=== PATIENT | female | born 1965 | race Caucasian/White ===

== ENCOUNTER 2017-03-18 13:08 | Inpatient (IN) | payer MEDICAID, OTHER ==
--- NOTE | 2017-03-18 13:17 | EDM.PDOCBH ---
ED HPI GENERAL MEDICAL PROBLEM - General Stated Complaint: OVERDOSE Time Seen by Provider: 03/18/17 13:09 Source of Information: Reports: Patient, Family (daughter) History Limitations: Reports: Intoxication - History of Present Illness INITIAL COMMENTS - FREE TEXT/NARRATIVE: 51 y.w.f. was found by her daughter, sitting in the car, the garage, unresponsive, with a big bottle of whisky next to her, 1/2 empty. It is not clear how long the patient has been sitting in her car. Daughter called the EMS. EMS brought the patient to the ed. On arrival, the patien was intxicated with a GCS of 11. Opens her eyes to verbal command (3) inappropriate response ( 3), purposeful movement to painful stimuli (5). Daughter is present. Pt was 4 times in a ETOH program in the past. BP 118/47 RR 16, O2 (7 on RA Temp 36.4 pulse 106 Onset: Today Onset Date: 03/18/17 Onset Time: 10:00 Duration: Hour(s): Location: Reports: Generalized Quality: Reports: Other (intoxicated) Improves with: Reports: Other (not drinking) Context: Reports: Other (pt was found unresponsive in her car, 1/2 empty bottle of whisky next to her) Associated Symptoms: Reports: Other (lethargic) - Related Data Allergies Allergy/AdvReac Type Severity Reaction Status Date / Time No Known Allergies Allergy Verified 03/18/17 13:57 Home Meds: Home Meds Multivitamin [Multivitamins] 1 tab PO DAILY 12/31/15 [History] Past Medical History Respiratory History: Reports: Bronchitis, Recurrent Other Genitourinary History: KIDNEY STONES IN PAST Other OB/BYN History: A&P repair noted from Dr Barrett's last H&P 01/03 Neurological History: Reports: Concussion, Migraines Other Psychiatric History: alcoholism by hx, admitted tonight with elevate ETOH level and fall at home. Has been in treatment twice the first time fairly extensive, the second briefly (see Dr. Barrett's H&P from 01/03). [facility] after last admission on outpt basis--haven't been able to get from patient if she followed up with that. - Infectious Disease History Infectious Disease History: Reports: Other (See Below) Other Infectious Disease History: cat scratch fever - Past Surgical History Musculoskeletal Surgical History: Reports: Ganglion Cyst, Other (See Below) Social & Family History - Tobacco Use Smoking Status *Q: Current Every Day Smoker Years of Tobacco use: 20 Packs/Tins Daily: 0.5 Used Tobacco, but Quit: No Second Hand Smoke Exposure: No - Alcohol Use Days Per Week of Alcohol Use: 4 Number of Drinks Per Day: 4 Total Drinks Per Week: 16 - Recreational Drug Use Recreational Drug Use: No Drug Use in Last 12 Months: No Recreational Drug Type: Reports: Marijuana/Hashish ED ROS GENERAL - Review of Systems Review Of Systems: Unable To Obtain (intoxicated) ED EXAM, BEHAVIORAL HEALTH - Physical Exam Exam: See Below Exam Limited By: Intoxication General Appearance: Lethargic Eye Exam: Bilateral Eye: EOMI Ears: Normal External Exam Nose: Normal Inspection Throat/Mouth: Normal Inspection, No Airway Compromise Head: Atraumatic, Normocephalic Neck: Normal Inspection, Supple, Full Range of Motion Respiratory/Chest: No Respiratory Distress, Lungs Clear, Normal Breath Sounds ( poor insp effort) Cardiovascular: Normal Peripheral Pulses, Regular Rate, Rhythm, No Edema, No Gallop GI/Abdominal: Normal Bowel Sounds, Soft, Non-Tender (Female) Exam: Deferred Rectal (Female) Exam: Deferred Back Exam: Normal Inspection Extremities: Normal Inspection Neurological: Inattentive Psychiatric: Other (unable to evaluate) Skin Exam: Warm, Dry, Intact, Normal color, No rash COURSE, BEHAVIORAL HEALTH COMP - Course Vital Signs: Last Vital Signs Temp 36.5 C 03/18/17 16:20 Pulse 128 H 03/18/17 16:20 Resp 20 03/18/17 16:20 BP 129/66 03/18/17 16:20 Pulse Ox 98 03/18/17 16:20 51 y.w.f. was found by her daughter, sitting in the car, the garage, unresponsive, with a big bottle of whisky next to her, 1/2 empty. It is not clear how long the patient has been sitting in her car. Daughter called the EMS. EMS brought the patient to the ed. On arrival, the patien was intxicated with a GCS of 11. Opens her eyes to verbal command (3) inappropriate response ( 3), purposeful movement to painful stimuli (5). Daughter is present. Pt was 4 times in a ETOH program in the past. BP 118/47 RR 16, O2 (7 on RA Temp 36.4 pulse 106. As per daughter, pt is not suicidal. PE: WNWD WF severely intoxicated. Pt was place in stable left lat position to prevent aspiration. Labs: Na 133 K. 4.2 WBC 8.6 HGB 15.4 ETOH 0.51 BUN 21 Cr 0.7 Glc 134, Ca 7.9 Imaging: Not indicated Impression: ETOH intoxication, Dehydration. Tx: NS, Thiamin Reexam: Pt improved to a GCS to 12 (obeys comans for movement) 2.33 pm: Consultation: Dr. Villeda accepted the pt to be admitted to ICU here at [place]. Plan: Admit to ICU Orders, Labs, Meds: Active Orders 24 hr Category Date Time Status Insert Urinary Catheter [OM.PC] Q24H Care 03/18/17 15:00 Ordered Medication Orders Sodium Chloride (Normal Saline) 1,000 mls @ 125 mls/hr IV ASDIRECTED [facility] Last Admin: 03/18/17 16:47 Dose: 125 mls/hr Lorazepam (Ativan) 1 mg IV Q6H PRN PRN Reason: Nausea/Vomiting Ondansetron HCl (Zofran) 4 mg IV Q4H PRN PRN Reason: Nausea/Vomiting Pantoprazole Sodium (Protonix Iv) 40 mg IVPUSH Q12H [facility] Laboratory Tests 03/18/17 03/18/17 03/18/17 Range/Units 13:20 13:20 13:20 WBC 8.2 (4.5-12.0) X10-3/uL RBC 4.42 (3.23-5.20) x10(6)uL Hgb 15.4 D (11.5-15.5) g/dL Hct 45.6 (30.0-51.3) % MCV 103.1 H (80-96) fL MCH 34.9 H (27.7-33.6) pg MCHC 33.9 (32.2-35.4) g/dL RDW 13.1 (11.5-15.5) % Plt Count 149 (125-369) X10(3)uL MPV 6.9 L (7.4-10.4) fL Neut % (Auto) 78.1 (46-82) % Lymph % (Auto) 15.4 (13-37) % [place] % (Auto) 6.2 (4-12) % Eos % (Auto) 0 L (1.0-5.0) % Baso % (Auto) 0 (0-2) % Neut # (Auto) 6.4 (1.6-8.3) # Lymph # (Auto) 1.3 (0.6-5.0) # Roosevelt # (Auto) 0.5 (0.0-1.3) # Eos # (Auto) 0.0 (0.0-0.8) # Baso # (Auto) 0.0 (0.0-0.2) # Sodium 133 L D (135-145) mmol/L Potassium 4.2 (3.5-5.3) mmol/L Chloride 95 L D (100-110) mmol/L Carbon Dioxide 24 (23-29) mmol/L BUN 21 H D (5-20) mg/dL Creatinine 0.7 (0.6-1.3) mg/dL Est Cr Clr Drug Dosing TNP Estimated GFR (MDRD) > 60 (>60) BUN/Creatinine Ratio 30.0 H (9-20) Glucose 132 H (80-116) mg/dL Calcium 7.9 L (8.6-10.2) mg/dL Salicylates < 4.0 L (5.0-25.0) mg/dL Urine Opiates Screen (NEGATIVE) Ur Oxycodone Screen (NEGATIVE) Ur Propoxyphene Screen (NEGATIVE) Acetaminophen < 10 L (10-30) ug/mL Ur Barbituates Screen (NEGATIVE) Ur Tricyclics Screen (NEGATIVE) Ur Phencyclidine Scrn (NEGATIVE) Ur Amphetamine Screen (NEGATIVE) Urine MDMA Screen (NEGATIVE) U Benzodiazepines Scrn (NEGATIVE) U Cocaine Metab Screen (NEGATIVE) U Marijuana (THC) Screen (NEGATIVE) Ethyl Alcohol 0.51 H* (<0.01) % 03/18/17 Range/Units 14:50 WBC (4.5-12.0) X10-3/uL RBC (3.23-5.20) x10(6)uL Hgb (11.5-15.5) g/dL Hct (30.0-51.3) % MCV (80-96) fL MCH (27.7-33.6) pg MCHC (32.2-35.4) g/dL RDW (11.5-15.5) % Plt Count (125-369) X10(3)uL MPV (7.4-10.4) fL Neut % (Auto) (46-82) % Lymph % (Auto) (13-37) % [place] % (Auto) (4-12) % Eos % (Auto) (1.0-5.0) % Baso % (Auto) (0-2) % Neut # (Auto) (1.6-8.3) # Lymph # (Auto) (0.6-5.0) # Roosevelt # (Auto) (0.0-1.3) # Eos # (Auto) (0.0-0.8) # Baso # (Auto) (0.0-0.2) # Sodium (135-145) mmol/L Potassium (3.5-5.3) mmol/L Chloride (100-110) mmol/L Carbon Dioxide (23-29) mmol/L BUN (5-20) mg/dL Creatinine (0.6-1.3) mg/dL Est Cr Clr Drug Dosing Estimated GFR (MDRD) (>60) BUN/Creatinine Ratio (9-20) Glucose (80-116) mg/dL Calcium (8.6-10.2) mg/dL Salicylates (5.0-25.0) mg/dL Urine Opiates Screen Negative (NEGATIVE) Ur Oxycodone Screen Negative (NEGATIVE) Ur Propoxyphene Screen Negative (NEGATIVE) Acetaminophen (10-30) ug/mL Ur Barbituates Screen Negative (NEGATIVE) Ur Tricyclics Screen Negative (NEGATIVE) Ur Phencyclidine Scrn Negative (NEGATIVE) Ur Amphetamine Screen Negative (NEGATIVE) Urine MDMA Screen Negative (NEGATIVE) U Benzodiazepines Scrn Negative (NEGATIVE) U Cocaine Metab Screen Negative (NEGATIVE) U Marijuana (THC) Screen Negative (NEGATIVE) Ethyl Alcohol (<0.01) % Medications Generic Name Dose Route Start Last Admin Trade Name Freq PRN Reason Stop Dose Admin Sodium Chloride 1,000 mls @ 125 mls/hr 03/18/17 16:15 03/18/17 16:47 Normal Saline IV 125 mls/hr ASDIRECTED NIGEL Administration Lorazepam 1 mg 03/18/17 15:23 Ativan IV Q6H PRN Nausea/Vomiting Ondansetron HCl 4 mg 03/18/17 15:23 Zofran IV Q4H PRN Nausea/Vomiting Pantoprazole Sodium 40 mg 03/18/17 15:30 Protonix Iv IVPUSH Q12H NIGEL Discontinued Medications Generic Name Dose Route Start Last Admin Trade Name Freq PRN Reason Stop Dose Admin Sodium Chloride 1,000 mls @ 999 mls/hr 03/18/17 13:18 03/18/17 13:24 Normal Saline IV 03/18/17 14:18 999 mls/hr .BOLUS ONE Administration Thiamine HCl 100 mg/ Sodium 101 mls @ 202 mls/hr 03/18/17 13:18 03/18/17 13: 28 Chloride IV 03/18/17 13:19 202 mls/hr ONETIME ONE Administration Pantoprazole Sodium 40 mg/ 100 mls @ 200 mls/hr 03/18/17 14:06 03/18/17 14:30 Sodium Chloride IV 03/18/17 14:35 200 mls/hr .BOLUS STA Administration Sodium Chloride 1,000 mls @ 999 mls/hr 03/18/17 15:30 03/18/17 15:43 Normal Saline IV 03/18/17 16:30 999 mls/hr .BOLUS ONE Administration Ondansetron HCl 8 mg 03/18/17 14:06 03/18/17 14:15 Zofran IVPUSH 03/18/17 14:07 8 mg ONETIME STA Administration Departure - Departure Time of Disposition: 15:39 Disposition: Admitted As Inpatient 68 Condition: Fair Clinical Impression: ETOH abuse, Alcohol intoxication - Discharge Information - My Orders Last 24 Hours: My Active Orders 03/18/17 15:00 Insert Urinary Catheter [OM.PC] Q24H - Assessment/Plan Last 24 Hours: My Active Orders 03/18/17 15:00 Insert Urinary Catheter [OM.PC] Q24H
[2017-03-18] MEDS ORDERED: Sodium Chloride 0.9% 1,000 ML IV ONE ×2 (13:18→15:30)
[2017-03-18] MEDS ORDERED: Thiamine 100 MG in Sodium Chloride 0.9% 100 ML IV ONE (13:18)
[2017-03-18 13:40] LABS: ACETAMINOPHEN < 10 ug/mL (10-30)
[2017-03-18] MEDS ORDERED: Pantoprazole 40 MG in Sodium Chloride 0.9% 100 ML IV STA (14:06)
[2017-03-18] MEDS ORDERED: Ondansetron 4 MG/2 ML SDV IVPUSH STA (14:06)
[2017-03-18] MEDS ORDERED: LORazepam 2 MG/ML MDV IV PRN (15:23)
[2017-03-18] MEDS ORDERED: Ondansetron 4 MG/2 ML SDV IV PRN (15:23)
[2017-03-18] MEDS: Sodium Chloride 0.9% 1,000 ML IV SCH (16:47)
[2017-03-18] MEDS ORDERED: Ketorolac 30 MG/ML SDV IM PRN (19:29)
[2017-03-18] MEDS: Pantoprazole 40 MG Vial IVPUSH SCH (19:35)
--- NOTE | 2017-03-18 19:38 | PCM.HP ---
H&P History of Present Illness - General Date of Service: 03/18/17 Admit Problem/Dx: Admission Diagnosis/Problem Admission Diagnosis/Problem Alcohol abuse with intoxication Source of Information: Patient, Family History Limitations: Reports: Altered Mental Status, Intoxication - History of Present Illness Initial Comments - Free Text/Narative: 51-year-old female was brought in by ambulance because of being found unresponsive. Her daughter went to check on her and found car in the garage passed out with a bottle of whiskey next her. She's battled with alcohol using 4 years. She's been not sure when the last alcohol intake was. Emergency room ET [place] was 0.51! She complains that she had and fell. She further complains of chronic neck pain. She denies any chest pain shortness of breath fever chills. She has a history of anxiety but has not been adequate to treat. She denies depression. Symptoms of alcoholism apparently got worse when her boyfriend last summer. 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 Has been in treatment twice the first time fairly extensive, the second briefly (see Dr. Barrett's H&P from 01/03). [facility] last admission on outpt basis--haven't been able to get from patient if she followed up with that. Endocrine/Metabolic History: Reports: None Hematologic History: Reports: None Immunologic History: Reports: None Oncologic (Cancer) History: Reports: None Dermatologic History: Reports: None - Infectious Disease History Infectious Disease History: Reports: Other (See Below) Other Infectious Disease History: cat scratch fever - Past Surgical History Musculoskeletal Surgical History: Reports: Ganglion Cyst, Other (See Below) Social & Family History - Family History Family Medical History: Noncontributory - Tobacco Use Smoking Status *Q: Current Every Day Smoker Years of Tobacco use: 20 Packs/Tins Daily: 0.5 Used Tobacco, but Quit: No Second Hand Smoke Exposure: No - Caffeine Use Caffeine Use: Reports: Coffee, Soda - Alcohol Use Days Per Week of Alcohol Use: 4 Number of Drinks Per Day: 4 Total Drinks Per Week: 16 Date of Last Drink: 03/18/17 Time of Last Drink: 12:40 - Recreational Drug Use Recreational Drug Use: No Drug Use in Last 12 Months: No Recreational Drug Type: Reports: Marijuana/Hashish H&P Review of Systems - Review of Systems: Review Of Systems: ROS reveals no pertinent complaints other than HPI. Exam - Exam Exam: See Below - Vital Signs Vital Signs: Last Vital Signs Temp 98.2 F 03/18/17 19:33 Pulse 126 H 03/18/17 19:33 Resp 18 03/18/17 19:33 BP 136/60 03/18/17 19:33 Pulse Ox 96 03/18/17 19:33 Weight: 76.884 kg - Exam General: Alert, Oriented, 4 HEENT: PERRLA, Hearing Intact, Mucosa Moist & [place], Nares Patent, Normal Nasal Septum, Posterior Pharynx Clear, Conjunctiva Clear, EOMI, EACs Clear, TMs Clear Neck: Supple, Trachea Midline, 2 Lungs: Clear to Auscultation, Normal Respiratory Effort Cardiovascular: Regular Rate, Regular Rhythm GI/Abdominal Exam: Normal Bowel Sounds, Soft, Non-Tender, No Organomegaly, No Distention, No Abnormal Bruit, No Mass, Pelvis Stable (Female) Exam: Normal External Exam, Normal Speculum Exam, Normal Bimanual Exam Rectal (Female) Exam: Normal Exam, Normal Rectal Tone Back Exam: Vertebral Tenderness (Cervical spine) Extremities: Normal Inspection, Normal Range of Motion, Non-Tender, No Pedal Edema, Normal Capillary Refill Skin: Warm, Dry, Intact Neurological: Cranial Nerves Intact, Reflexes Equal Bilateral Neuro Extensive - Mental Status: Alert, Oriented x3, Normal Mood/Affect, Normal Cognition Neuro Extensive - Motor, Sensory, Reflexes: CN II-XII Intact, Normal Gait, Normal Reflexes Psychiatric: Labile Mood, Withdrawal Symptoms - Patient Data Result Diagrams: 03/18/17 13:20 03/18/17 13:20 *Q Meaningful Use (ADM) - VTE *Q VTE Criteria *Q: - Stroke *Q Stroke Criteria *Q: - AMI *Q AMI Criteria *Q: - Problem List (1) Alcohol intoxication SNOMED Code(s): 86776751 ICD Code: F10.129 - ALCOHOL ABUSE WITH INTOXICATION, UNSPECIFIED Status: Acute Current Visit: Yes Qualifiers: Complication of substance-induced condition: with delirium Qualified Code(s ): F10.921 - Alcohol use, unspecified with intoxication delirium (2) ETOH abuse SNOMED Code(s): 21719977 ICD Code: F10.10 - ALCOHOL ABUSE, UNCOMPLICATED Status: Acute Current Visit: Yes (3) Alcohol withdrawal SNOMED Code(s): 532787340 ICD Code: F10.239 - ALCOHOL DEPENDENCE WITH WITHDRAWAL, UNSPECIFIED Status : Acute Current Visit: No Qualifiers: Complication of substance-induced condition: with unspecified complication Qualified Code(s): F10.239 - Alcohol dependence with withdrawal, unspecified (4) Depression SNOMED Code(s): 42478657 ICD Code: F32.9 - MAJOR DEPRESSIVE DISORDER, SINGLE EPISODE, UNSPECIFIED Status: Acute Current Visit: No Qualifiers: Depression Type: reactive depression Qualified Code(s): F32.9 - Major depressive disorder, single episode, unspecified (5) Headache SNOMED Code(s): 85645820 ICD Code: R51 - HEADACHE Status: Acute Current Visit: No Problem Details: Headache with muscle tension features. She may manage with NSAIDs or Tylenol. There may be a psychosocial agenda affecting intensity and frequency of headaches, and evaluation by a mental health provider was suggested. Qualifiers: Headache type: tension-type Headache chronicity pattern: unspecified pattern Intractability: not intractable Qualified Code(s): G44.209 - Tension -type headache, unspecified, not intractable Problem List Initiated/Reviewed/Updated: Yes Orders Last 24hrs: Active Orders 24 hr Category Date Time Status Oxygen Therapy [RC] PRN Care 03/18/17 19:30 Active Remove Lewis Catheter [Urinary Catheter Removal] [RC] Care 03/18/17 19:33 Active Per Unit Routine VTE/DVT Education [RC] Per Unit Routine Care 03/18/17 19:30 Active Vital Signs [RC] Q4H Care 03/18/17 19:30 Active Full Liquid Diet [DIET] Diet 03/19/17 Breakfast Active Cervical Spine wo Cont [CT] Routine Exams 03/18/17 19:28 Ordered Head wo Cont [CT] Routine Exams 03/18/17 19:28 Ordered AMMONIA [REF] Routine Lab 03/18/17 13:15 Received HEPATIC FUNCTION PANEL,HFP [CHEM] Routine Lab 03/18/17 13:15 Received INR,PT,PROTHROMBIN TIME [COAG] Stat Lab 03/18/17 13:15 Received MAGNESIUM [CHEM] Stat Lab 03/18/17 13:15 Received PHOSPHORUS [CHEM] Stat Lab 03/18/17 13:15 Received Ketorolac [Toradol] Med 03/18/17 19:29 Active 30 mg IM Q6H PRN LORazepam [Ativan] Med 03/18/17 19:32 Active 2 mg IVPUSH Q4H PRN Sodium Chloride 0.9% [Normal Saline] 1,000 ml Med 03/18/17 16:15 Active IV ASDIRECTED Medication Orders Sodium Chloride (Normal Saline) 1,000 mls @ 125 mls/hr IV ASDIRECTED NIGEL Last Admin: 03/18/17 16:47 Dose: 125 mls/hr Ketorolac Tromethamine (Toradol) 30 mg IM Q6H PRN PRN Reason: Pain (moderate 4-6) Lorazepam (Ativan) 2 mg IVPUSH Q4H PRN PRN Reason: Agitation Ondansetron HCl (Zofran) 4 mg IV Q4H PRN PRN Reason: Nausea/Vomiting Pantoprazole Sodium (Protonix Iv) 40 mg IVPUSH Q12H NIGEL Assessment/Plan Comment:: Admit for IV fluids, and observation. I suspect that she might wind withdrawal symptoms. Benzodiazepines will be the mainstay of therapy. A CT of the head was negative for any intracranial pathology. We'll also given thiamine, and multivitamin as needed.
[2017-03-18] MEDS: LORazepam 2 MG/ML MDV IVPUSH PRN ×2 (19:51→23:57)
[2017-03-19] MEDS: Sodium Chloride 0.9% 1,000 ML IV SCH ×2 (01:02→09:17)
[2017-03-19] MEDS: Pantoprazole 40 MG Vial IVPUSH SCH ×2 (03:31→15:33)
[2017-03-19] MEDS: LORazepam 2 MG/ML MDV IVPUSH PRN ×4 (03:53→16:16)
[2017-03-19] MEDS ORDERED: Thiamine 200 MG/2 ML MDV IV SCH (08:15)
--- NOTE | 2017-03-19 08:15 | PCM.PN ---
- General Info Date of Service: 03/19/17 Subjective Update: She has needed benzodiazepines overnight to control agitation anxiety and trembling. She still complains of neck pain and right hand pain. Functional Status: Reports: Tolerating Diet, New Symptoms (pain right hand). Denies: Ambulating - Review of Systems General: Reports: Night Sweats Pulmonary: Reports: No Symptoms Musculoskeletal: Reports: Neck Pain Neurological: Reports: Difficulty Walking Psychiatric: Reports: Anxiety - Patient Data Vitals - Most Recent: Last Vital Signs Temp 99.5 F 03/19/17 03:58 Pulse 118 H 03/19/17 03:58 Resp 19 03/19/17 03:58 BP 124/48 L 03/19/17 03:58 Pulse Ox 94 L 03/19/17 03:58 Weight - Most Recent: 76.884 kg I&O - Last 24 Hours: Intake & Output 03/18/17 03/19/17 03/19/17 22:59 06:59 14:59 Intake Total 4227 1703 Output Total 450 Balance 4227 1253 Med Orders - Current: Current Medications Sodium Chloride (Normal Saline) 1,000 mls @ 125 mls/hr IV ASDIRECTED NIGEL Last Admin: 03/19/17 01:02 Dose: 125 mls/hr Ketorolac Tromethamine (Toradol) 30 mg IM Q6H PRN PRN Reason: Pain (moderate 4-6) Last Admin: 03/19/17 01:28 Dose: 30 mg Lorazepam (Ativan) 2 mg IVPUSH Q4H PRN PRN Reason: Agitation Last Admin: 03/19/17 03:53 Dose: 2 mg Ondansetron HCl (Zofran) 4 mg IV Q4H PRN PRN Reason: Nausea/Vomiting Last Admin: 03/18/17 22:18 Dose: 4 mg Pantoprazole Sodium (Protonix Iv) 40 mg IVPUSH Q12H NIGEL Last Admin: 03/19/17 03:31 Dose: 40 mg Thiamine HCl (Vitamin B-1) 100 mg IV DAILY NIGEL Discontinued Medications Sodium Chloride (Normal Saline) 1,000 mls @ 999 mls/hr IV .BOLUS ONE Stop: 03/18/17 14:18 Last Admin: 03/18/17 13:24 Dose: 999 mls/hr Thiamine HCl 100 mg/ Sodium (Chloride) 101 mls @ 202 mls/hr IV ONETIME ONE Stop: 03/18/17 13:19 Last Admin: 03/18/17 13:28 Dose: 202 mls/hr Pantoprazole Sodium 40 mg/ (Sodium Chloride) 100 mls @ 200 mls/hr IV .BOLUS STA Stop: 03/18/17 14:35 Last Admin: 03/18/17 14:30 Dose: 200 mls/hr Sodium Chloride (Normal Saline) 1,000 mls @ 999 mls/hr IV .BOLUS ONE Stop: 03/18/17 16:30 Last Admin: 03/18/17 15:43 Dose: 999 mls/hr Lorazepam (Ativan) 1 mg IV Q6H PRN PRN Reason: Nausea/Vomiting Ondansetron HCl (Zofran) 8 mg IVPUSH ONETIME STA Stop: 03/18/17 14:07 Last Admin: 03/18/17 14:15 Dose: 8 mg - Exam General: Alert, Oriented Lungs: Clear to Auscultation, Normal Respiratory Effort Cardiovascular: Regular Rate, Regular Rhythm Extremities: Normal Inspection, Normal Range of Motion, Non-Tender, No Pedal Edema, Normal Capillary Refill Skin: Warm Neurological: No New Focal Deficit Psy/Mental Status: Withdrawal Symptoms - Problem List & Annotations (1) Alcohol withdrawal SNOMED Code(s): 000677457 Code(s): F10.239 - ALCOHOL DEPENDENCE WITH WITHDRAWAL, UNSPECIFIED Status: Acute Current Visit: No Qualifiers: Complication of substance-induced condition: with unspecified complication Qualified Code(s): F10.239 - Alcohol dependence with withdrawal, unspecified (2) Alcohol intoxication SNOMED Code(s): 38053577 Code(s): F10.129 - ALCOHOL ABUSE WITH INTOXICATION, UNSPECIFIED Status: Acute Current Visit: Yes Qualifiers: Complication of substance-induced condition: with delirium Qualified Code(s ): F10.921 - Alcohol use, unspecified with intoxication delirium (3) ETOH abuse SNOMED Code(s): 34446317 Code(s): F10.10 - ALCOHOL ABUSE, UNCOMPLICATED Status: Acute Current Visit: Yes (4) Depression SNOMED Code(s): 06422660 Code(s): F32.9 - MAJOR DEPRESSIVE DISORDER, SINGLE EPISODE, UNSPECIFIED Status: Acute Current Visit: No Qualifiers: Depression Type: reactive depression Qualified Code(s): F32.9 - Major depressive disorder, single episode, unspecified (5) Headache SNOMED Code(s): 85961909 Code(s): R51 - HEADACHE Status: Acute Current Visit: No Qualifiers: Headache type: tension-type Headache chronicity pattern: unspecified pattern Intractability: not intractable Qualified Code(s): G44.209 - Tension -type headache, unspecified, not intractable Annotation/Comment:: Headache with muscle tension features. She may manage with NSAIDs or Tylenol. There may be a psychosocial agenda affecting intensity and frequency of headaches, and evaluation by a mental health provider was suggested. (6) Hand pain, right SNOMED Code(s): 38626158 Code(s): M79.641 - PAIN IN RIGHT HAND Status: Acute Current Visit: Yes - Problem List Review Problem List Initiated/Reviewed/Updated: Yes - My Orders Last 24 Hours: My Active Orders 03/18/17 13:15 AMMONIA [REF] Routine 03/18/17 19:28 Cervical Spine wo Cont [CT] Routine Head wo Cont [CT] Routine 03/18/17 19:29 Ketorolac [Toradol] 30 mg IM Q6H PRN 03/18/17 19:30 Oxygen Therapy [RC] PRN VTE/DVT Education [RC] Per Unit Routine Vital Signs [RC] Q4H 03/18/17 19:32 LORazepam [Ativan] 2 mg IVPUSH Q4H PRN 03/18/17 19:33 Remove Lewis Catheter [Urinary Catheter Removal] [RC] Per Unit Routine 03/19/17 08:15 Thiamine [Vitamin B-1] 100 mg IV DAILY 03/20/17 05:11 CBC WITH AUTO DIFF [HEME] AM COMPREHENSIVE METABOLIC PN,CMP [CHEM] AM MAGNESIUM [CHEM] AM PHOSPHORUS [CHEM] AM - Plan Plan:: Patient still unsteady on her feet she is trembling and very anxious. We'll keep her today continue benzodiazepines when necessary, and IV fluids and thiamine replacement.
[2017-03-19] MEDS ORDERED: Sodium Chloride 0.9% 10 ML Syringe FLUSH PRN (08:26)
[2017-03-19] MEDS ORDERED: Thiamine 100 MG in Sodium Chloride 0.9% 100 ML IV SCH (09:00)
[2017-03-19] MEDS: Thiamine 100 MG Tab PO SCH (09:17)
[2017-03-19] MEDS: Sodium Chloride 0.9% 10 ML Syringe FLUSH PRN ×3 (09:22→16:21)
[2017-03-20] MEDS: Sodium Chloride 0.9% 10 ML Syringe FLUSH PRN ×2 (00:04→03:39)
[2017-03-20] MEDS: LORazepam 2 MG/ML MDV IVPUSH PRN (00:04)
[2017-03-20] MEDS: Pantoprazole 40 MG Vial IVPUSH SCH ×2 (03:38→15:00)
[2017-03-20 08:23] VITALS: BP 138/92
--- NOTE | 2017-03-20 08:47 | PCM.PN ---
- General Info Date of Service: 03/20/17 Subjective Update: Patient feels better today complains of mild hand pain on the right. Was initially unsteady but currently unable to support herself to the bathroom and back. She does not want treatment inpatient at this time. - Review of Systems HEENT: Reports: No Symptoms Pulmonary: Reports: No Symptoms Cardiovascular: Reports: No Symptoms Gastrointestinal: Reports: No Symptoms - Patient Data Vitals - Most Recent: Last Vital Signs Temp 99 F 03/20/17 07:55 Pulse 88 03/20/17 07:55 Resp 20 03/20/17 07:55 BP 138/92 H 03/20/17 07:55 Pulse Ox 100 03/20/17 07:55 Weight - Most Recent: 76.884 kg I&O - Last 24 Hours: Intake & Output 03/19/17 03/20/17 03/20/17 22:59 06:59 14:59 Intake Total 1468 850 Balance 1468 850 Lab Results Last 24 Hours: Laboratory Results - last 24 hr 03/20/17 03/20/17 Range/Units 06:30 06:30 WBC 5.8 (4.5-12.0) X10-3/uL RBC 3.32 (3.23-5.20) x10(6)uL Hgb 12.0 D (11.5-15.5) g/dL Hct 34.4 D (30.0-51.3) % MCV 103.6 H (80-96) fL MCH 36.0 H (27.7-33.6) pg MCHC 34.7 (32.2-35.4) g/dL RDW 12.7 (11.5-15.5) % Plt Count 61 L (125-369) X10(3)uL MPV 8.2 (7.4-10.4) fL Neut % (Auto) 77.7 (46-82) % Lymph % (Auto) 13.9 (13-37) % [place] % (Auto) 6.9 (4-12) % Eos % (Auto) 1 (1.0-5.0) % Baso % (Auto) 0 (0-2) % Neut # (Auto) 4.5 (1.6-8.3) # Lymph # (Auto) 0.8 (0.6-5.0) # [place] # (Auto) 0.4 (0.0-1.3) # Eos # (Auto) 0.1 (0.0-0.8) # Baso # (Auto) 0.0 (0.0-0.2) # Sodium 132 L (135-145) mmol/L Potassium 3.6 (3.5-5.3) mmol/L Chloride 101 D (100-110) mmol/L Carbon Dioxide 22 L (23-29) mmol/L BUN 13 (5-20) mg/dL Creatinine 0.5 L (0.6-1.3) mg/dL Est Cr Clr Drug Dosing 132.35 mL/min Estimated GFR (MDRD) > 60 (>60) BUN/Creatinine Ratio 26.0 H (9-20) Glucose 101 (80-116) mg/dL Calcium 8.2 L (8.6-10.2) mg/dL Phosphorus 2.1 L (3.0-4.6) mg/dL Magnesium 1.6 L (1.8-2.5) mg/dL Total Bilirubin 1.6 H (0.1-1.3) mg/dL AST 74 H D (5-27) IU/L ALT 47 H D (14-26) IU/L Alkaline Phosphatase 50 L (56-112) IU/L Total Protein 6.2 (6.0-8.0) g/dL Albumin 3.5 (3.5-5.2) g/dL Globulin 2.7 g/dL Albumin/Globulin Ratio 1.3 Med Orders - Current: Current Medications Ketorolac Tromethamine (Toradol) 30 mg IM Q6H PRN PRN Reason: Pain (moderate 4-6) Last Admin: 03/19/17 01:28 Dose: 30 mg Lorazepam (Ativan) 2 mg IVPUSH Q4H PRN PRN Reason: Agitation Last Admin: 03/20/17 00:04 Dose: 2 mg Ondansetron HCl (Zofran) 4 mg IV Q4H PRN PRN Reason: Nausea/Vomiting Last Admin: 03/18/17 22:18 Dose: 4 mg Pantoprazole Sodium (Protonix Iv) 40 mg IVPUSH Q12H NIGEL Last Admin: 03/20/17 03:38 Dose: 40 mg Sodium Chloride (Saline Flush) 10 ml FLUSH ASDIRECTED PRN PRN Reason: Keep Vein Open Last Admin: 03/20/17 03:39 Dose: 10 ml Thiamine HCl (Vitamin B-1) 100 mg PO DAILY [facility] Last Admin: 03/19/17 09:17 Dose: 100 mg Discontinued Medications Sodium Chloride (Normal Saline) 1,000 mls @ 999 mls/hr IV .BOLUS ONE Stop: 03/18/17 14:18 Last Admin: 03/18/17 13:24 Dose: 999 mls/hr Thiamine HCl 100 mg/ Sodium (Chloride) 101 mls @ 202 mls/hr IV ONETIME ONE Stop: 03/18/17 13:19 Last Admin: 03/18/17 13:28 Dose: 202 mls/hr Pantoprazole Sodium 40 mg/ (Sodium Chloride) 100 mls @ 200 mls/hr IV .BOLUS STA Stop: 03/18/17 14:35 Last Admin: 03/18/17 14:30 Dose: 200 mls/hr Sodium Chloride (Normal Saline) 1,000 mls @ 999 mls/hr IV .BOLUS ONE Stop: 03/18/17 16:30 Last Admin: 03/18/17 15:43 Dose: 999 mls/hr Sodium Chloride (Normal Saline) 1,000 mls @ 125 mls/hr IV ASDIRECTED NIGEL Last Admin: 03/19/17 09:17 Dose: 125 mls/hr Thiamine HCl 100 mg/ Sodium (Chloride) 101 mls @ 202 mls/hr IV DAILY [facility] Lorazepam (Ativan) 1 mg IV Q6H PRN PRN Reason: Nausea/Vomiting Ondansetron HCl (Zofran) 8 mg IVPUSH ONETIME STA Stop: 03/18/17 14:07 Last Admin: 03/18/17 14:15 Dose: 8 mg Sodium Chloride (Saline Flush) 10 ml FLUSH ASDIRECTED PRN PRN Reason: Keep Vein Open Thiamine HCl (Vitamin B-1) 100 mg IV DAILY [facility] - Exam General: Alert, Oriented HEENT: Pupils Equal, Pupils Reactive, EOMI, Mucous Membr. Moist/[place] Neck: Supple Lungs: Clear to Auscultation, Normal Respiratory Effort Cardiovascular: Regular Rate, Regular Rhythm GI/Abdominal Exam: Normal Bowel Sounds, Soft, Non-Tender, No Organomegaly, No Distention, No Abnormal Bruit, No Mass, Pelvis Stable (Female) Exam: Normal External Exam, Normal Speculum Exam, Normal Bimanual Exam Back Exam: Normal Inspection, Full Range of Motion Extremities: Normal Inspection, Normal Range of Motion, Non-Tender, No Pedal Edema, Normal Capillary Refill Skin: Warm, Dry, Intact Wound/Incisions: Healing Well Neurological: No New Focal Deficit Psy/Mental Status: Alert, Normal Affect, Normal Mood - Problem List & Annotations (1) Alcohol withdrawal SNOMED Code(s): 905599292 Code(s): F10.239 - ALCOHOL DEPENDENCE WITH WITHDRAWAL, UNSPECIFIED Status: Acute Current Visit: No Qualifiers: Complication of substance-induced condition: with unspecified complication Qualified Code(s): F10.239 - Alcohol dependence with withdrawal, unspecified (2) Alcohol intoxication SNOMED Code(s): 78355993 Code(s): F10.129 - ALCOHOL ABUSE WITH INTOXICATION, UNSPECIFIED Status: Acute Current Visit: Yes Qualifiers: Complication of substance-induced condition: with delirium Qualified Code(s ): F10.921 - Alcohol use, unspecified with intoxication delirium (3) ETOH abuse SNOMED Code(s): 36803032 Code(s): F10.10 - ALCOHOL ABUSE, UNCOMPLICATED Status: Acute Current Visit: Yes (4) Depression SNOMED Code(s): 07737157 Code(s): F32.9 - MAJOR DEPRESSIVE DISORDER, SINGLE EPISODE, UNSPECIFIED Status: Acute Current Visit: No Qualifiers: Depression Type: reactive depression Qualified Code(s): F32.9 - Major depressive disorder, single episode, unspecified (5) Headache SNOMED Code(s): 00190558 Code(s): R51 - HEADACHE Status: Acute Current Visit: No Qualifiers: Headache type: tension-type Headache chronicity pattern: unspecified pattern Intractability: not intractable Qualified Code(s): G44.209 - Tension -type headache, unspecified, not intractable Annotation/Comment:: Headache with muscle tension features. She may manage with NSAIDs or Tylenol. There may be a psychosocial agenda affecting intensity and frequency of headaches, and evaluation by a mental health provider was suggested. (6) Hand pain, right SNOMED Code(s): 51468675 Code(s): M79.641 - PAIN IN RIGHT HAND Status: Acute Current Visit: Yes - Problem List Review Problem List Initiated/Reviewed/Updated: Yes - My Orders Last 24 Hours: My Active Orders 03/19/17 08:24 Sodium Chloride 0.9% [Saline Flush] 10 ml FLUSH ASDIRECTED PRN 03/19/17 09:00 Thiamine [Vitamin B-1] 100 mg PO DAILY 03/20/17 08:06 Code Status [Resuscitation Status] Routine 03/20/17 08:11 Hand Comp Min 3V Rt [CR] Routine - Plan Plan:: I will discharge the patient home today restart the Lexapro and when necessary Xanax. Follow-up with PCP in 3 days.
[2017-03-20] MEDS: Thiamine 100 MG Tab PO SCH (08:52)
--- NOTE | 2017-03-20 09:58 | DISCH ---
DISCHARGE DATE: 03/20/2017 REASON FOR ADMISSION: Alcohol intoxication. DISCHARGE DIAGNOSES: 1. Generalized anxiety disorder. 2. Alcohol abuse disorder. BRIEF HISTORY: This is a 51-year-old female admitted with an alcohol level of 0.51 after being found unresponsive. She underwent a CT scan of the head and neck, though unremarkable. She had some withdrawal initially, treated with benzodiazepines and was unsteady on Monday, but was able to be strong enough to go home on Monday. She declined inpatient hospitalization for treatment. She will go back home on her regular home medications, which she will take Lexapro and Xanax. I have advised her to see Dr. Martinez in four days. I spent more than 35 minutes in the discharge of the patient. /[id number] DELMY/GAURAV
--- NOTE | 2017-03-20 13:52 | CR ---
INDICATION: Pain and swelling. RIGHT HAND: Three views of the right hand were obtained with ring in place - swelling prevented removal of the ring - and revealed no definite fracture site or dislocation or other definite bone or joint abnormality. If symptoms are specifically referable to the proximal phalanx of the 4th digit - underlying the unable to be removed ring - the ring may need to be removed and additional x-rays obtained. Minimal degenerative changes are noted at the interphalangeal joint of the thumb , with mild degenerative changes at the first metacarpal-carpal joint. IMPRESSION: No visualized fracture or dislocation. MTDD
== END 2017-03-20 15:50 | disposition home or self-care (01) | DRG 897 ==
LOC: FB.ED 13:08 → FB.ICU 15:23
PROVIDERS: ADMIT Family Medicine; ATTEND Family Medicine
DX: F10.121 Alcohol abuse with intoxication delirium (principal); R40.2422 Glasgow coma scale score 9-12, at arrival to emergency department; Y90.2 Blood alcohol level of 40-59 mg/100 ml; E86.0 Dehydration; F17.210 Nicotine dependence, cigarettes, uncomplicated; F32.9 Major depressive disorder, single episode, unspecified; G44.209 Tension-type headache, unspecified, not intractable; M79.641 Pain in right hand; F41.1 Generalized anxiety disorder; M54.2 Cervicalgia
CPT/HCPCS: 36415; 70450; 72125; 73130-RT; 80048; 80053; 80076; 80305; 82140; 83735; 84100; 85025; 85610; 96361; 96365; 96367; 96375; 99285; A9270-GY; C9113; G0480; J1885; J2060; J2405; J3411; J7030; J7040; J7050

== ENCOUNTER 2017-04-27 07:53 | Emergency (ER) | payer MEDICAID ==
[2017-04-27] MEDS ORDERED: LORazepam 2 MG/ML MDV IVPUSH STA (08:09)
[2017-04-27] MEDS ORDERED: Sodium Chloride 0.9% 1,000 ML IV ONE ×2 (08:11→10:03)
[2017-04-27] MEDS ORDERED: Thiamine 100 MG in Sodium Chloride 0.9% 100 ML IV ONE (08:12)
[2017-04-27] MEDS ORDERED: Ondansetron 4 MG/2 ML SDV IVPUSH ONE (08:16)
--- NOTE | 2017-04-27 08:19 | EDM.PDOC ---
ED HPI GENERAL MEDICAL PROBLEM - General Stated Complaint: PAIN Time Seen by Provider: 04/27/17 07:53 Source of Information: Reports: Patient, EMS History Limitations: Reports: Other (anxious, tremor, ETOH withdrawel) - History of Present Illness INITIAL COMMENTS - FREE TEXT/NARRATIVE: 51 y.o.w.f came to the ed by EMS because of severe tremor. Pt was d/c'd form this facility recently for ETOH withdrawal. As per daughter, pt drinks every day and drank in the last 5 days. As per pt, she drank the last ETOH 1 week ago. Pt is a poor historian and no family is present. No N/V/D no F/C or any other acute medical issues. BP 121/80 pulse 91 RR 19 Temp 36.6 O2 sat 97% on RA Onset: Today Onset Date: 04/25/17 Onset Time: 07:00 Duration: Chronic Location: Reports: Generalized Quality: Reports: Other (tremor. Ataxia) Severity: Moderate Improves with: Reports: Rest Worsens with: Reports: Movement Context: Reports: Other (ETOH withdrawel) back, head, arms Pain Score (Numeric/FACES): 10 - Related Data Allergies Allergy/AdvReac Type Severity Reaction Status Date / Time cinnamon Allergy Rash Verified 03/18/17 18:22 Home Meds: Home Meds Multivitamin [Multivitamins] 1 tab PO DAILY 12/31/15 [History] Past Medical History HEENT History: Reports: None Cardiovascular History: Reports: None Respiratory History: Reports: Bronchitis, Recurrent Gastrointestinal History: Reports: None Other Genitourinary History: KIDNEY STONES IN PAST FOOD STYLIST History: Reports: Other OB/BYN History: A&P repair noted from Dr Barrett's last H&P 01/03 Musculoskeletal History: Reports: Other (See Below) Other Musculoskeletal History: surgery on hyper active glands to help with sweating Neurological History: Reports: Concussion, Migraines Psychiatric History: Reports: Addiction, Anxiety Other Psychiatric History: alcoholism by hx, admitted tonight with elevate ETOH level and fall at home. Has been in treatment twice the first time fairly extensive, the second briefly (see Dr. Barrett's H&P from 01/03). Was suppose to follow [facility] with [facility] after last admission on outpt basis--haven't been able to get from patient if she followed up with that. Endocrine/Metabolic History: Reports: None Hematologic History: Reports: None Immunologic History: Reports: None Oncologic (Cancer) History: Reports: None Dermatologic History: Reports: None - Infectious Disease History Infectious Disease History: Reports: Other (See Below) Other Infectious Disease History: cat scratch fever - Past Surgical History Musculoskeletal Surgical History: Reports: Ganglion Cyst, Other (See Below) Social & Family History - Family History Family Medical History: Noncontributory - Tobacco Use Smoking Status *Q: Current Every Day Smoker Years of Tobacco use: 20 Packs/Tins Daily: 0.5 Used Tobacco, but Quit: No Second Hand Smoke Exposure: No - Caffeine Use Caffeine Use: Reports: Coffee, Soda - Alcohol Use Days Per Week of Alcohol Use: 4 Number of Drinks Per Day: 4 Total Drinks Per Week: 16 - Recreational Drug Use Recreational Drug Use: No Drug Use in Last 12 Months: No Recreational Drug Type: Reports: Marijuana/[place] ED ROS GENERAL - Review of Systems Review Of Systems: Unable To Obtain ED EXAM, NEURO - Physical Exam Exam: See Below Exam Limited By: Other (tremor, ETOH withdrawel) General Appearance: Alert, WD/WN, Mild Distress Eye Exam: Bilateral Eye: Normal Inspection Ears: Normal External Exam Nose: Normal Inspection Throat/Mouth: Normal Inspection Head Exam: Atraumatic, Normocephalic Neck: Normal Inspection, Supple, Non-Tender Respiratory/Chest: No Respiratory Distress, Lungs Clear, Normal Breath Sounds Cardiovascular: Normal Peripheral Pulses, Regular Rate, Rhythm, No Edema GI/Abdominal: Normal Bowel Sounds, Soft, Non-Tender, No Organomegaly (Female) Exam: Deferred Rectal (Female) Exam: Deferred Neurological: Alert, CN II-XII Intact, Abnormal Gait, Ataxia, Abnormal Finger to Nose, Difficulty Walking Back Exam: Normal Inspection, Full Range of Motion Extremities: Normal Inspection, Normal Range of Motion, Non-Tender, No Pedal Edema Psychiatric: Anxious, Depressed Mood Skin Exam: Warm, Dry, Intact, Normal Color, No Rash Course - Vital Signs Text/Narrative:: 51 y.o.w.f came to the ed by EMS because of severe tremor. Pt was d/c'd form this facility recently for ETOH withdrawal. As per daughter, pt drinks every day and drank in the last 5 days. As per pt, she drank the last ETOH 1 week ago. Pt is a poor historian and no family is present. No N/V/D no F/C or any other acute medical issues. No trauma. I have spoken with one of her daughter on the phone. Her mom was in multiple ETOH with Tx she walks out of the Tx center and cont to drink. BP 121/80 pulse 91 RR 19 Temp 36.6 O2 sat 97% on RA PE: WNWD WF in ETOH withdrawal, tremor, ataxia/unsteady gait Lbs: ETOH 0.03 WBC 6.4 HGB 13.9 HCT 39.9 INR 1.24 Na 142 K. 3.3 GFR 59 Vit B12 level 1264 ( may have been drawn after Thiamin/folic acid and MVT were given) UGS was neg Imaging: Not indicated Impression: Chronic ETOH abuse, Unsteady [place], Ataxia. ETOH withdrawal, Dehydration 11.26 am Consultation: Dr. Schultz, Hospitalist: refused admission 12.01 pm Consulted social insurance administrator, will see pt in the ed 12.30 pm Consultation: Dr. Peña, Hospitalist: Accepted the patient for further care. Tx: Sz precautions, Ativan, NS, MVT. Thiamin and Folic acid Reexam: Improved some, pt has still ataxia and is not able to walk independently Plan: Transfer ti [facility]. Last Recorded V/S: Last Vital Signs Temp 36.9 C 04/27/17 13:15 Pulse 106 H 04/27/17 13:15 Resp 18 04/27/17 13:15 BP 123/70 04/27/17 13:15 Pulse Ox 99 04/27/17 13:15 - Orders/Labs/Meds Orders: Active Orders 24 hr Category Date Time Status Seizure Precautions [OM.PC] Routine Oth 04/27/17 08:11 Ordered Labs: Laboratory Tests 04/27/17 04/27/17 04/27/17 Range/Units 08:20 08:20 08:20 WBC 6.4 (4.5-12.0) X10-3/uL RBC 3.87 (3.23-5.20) x10(6)uL Hgb 13.8 (11.5-15.5) g/dL Hct 39.9 (30.0-51.3) % MCV 103.0 H (80-96) fL MCH 35.5 H (27.7-33.6) pg MCHC 34.5 (32.2-35.4) g/dL RDW 13.3 (11.5-15.5) % Plt Count 42 L (125-369) X10(3)uL MPV 7.0 L (7.4-10.4) fL Add Manual Diff Yes Neutrophils % (Manual) 83 H (46-82) % Lymphocytes % (Manual) 13 (13-37) % Monocytes % (Manual) 4 (4-12) % Macrocytosis Moderate H PT 12.6 H (8.7-11.1) INR 1.24 H (0.89-1.13) Sodium 142 (135-145) mmol/L Potassium 3.3 L (3.5-5.3) mmol/L Chloride 100 (100-110) mmol/L Carbon Dioxide 21 (21-32) mmol/L BUN 12 (7-18) mg/dL Creatinine 1.0 (0.55-1.02) mg/dL Est Cr Clr Drug Dosing 66.18 mL/min Estimated GFR (MDRD) 59 L (>60) BUN/Creatinine Ratio 12.0 (9-20) Glucose 88 (80-116) mg/dL Calcium 8.7 (8.6-10.2) mg/dL Vitamin B12 (193-986) pg/mL Urine Opiates Screen (NEGATIVE) Ur Oxycodone Screen (NEGATIVE) Ur Propoxyphene Screen (NEGATIVE) Ur Barbituates Screen (NEGATIVE) Ur Tricyclics Screen (NEGATIVE) Ur Phencyclidine Scrn (NEGATIVE) Ur Amphetamine Screen (NEGATIVE) Urine MDMA Screen (NEGATIVE) U Benzodiazepines Scrn (NEGATIVE) U Cocaine Metab Screen (NEGATIVE) U Marijuana (THC) Screen (NEGATIVE) Ethyl Alcohol (<0.03) % 04/27/17 04/27/17 04/27/17 Range/Units 08:20 08:20 09:25 WBC (4.5-12.0) X10-3/uL RBC (3.23-5.20) x10(6)uL Hgb (11.5-15.5) g/dL Hct (30.0-51.3) % MCV (80-96) fL MCH (27.7-33.6) pg MCHC (32.2-35.4) g/dL RDW (11.5-15.5) % Plt Count (125-369) X10(3)uL MPV (7.4-10.4) fL Add Manual Diff Neutrophils % (Manual) (46-82) % Lymphocytes % (Manual) (13-37) % Monocytes % (Manual) (4-12) % Macrocytosis PT (8.7-11.1) INR (0.89-1.13) Sodium (135-145) mmol/L Potassium (3.5-5.3) mmol/L Chloride (100-110) mmol/L Carbon Dioxide (21-32) mmol/L BUN (7-18) mg/dL Creatinine (0.55-1.02) mg/dL Est Cr Clr Drug Dosing mL/min Estimated GFR (MDRD) (>60) BUN/Creatinine Ratio (9-20) Glucose (80-116) mg/dL Calcium (8.6-10.2) mg/dL Vitamin B12 1264 H (193-986) pg/mL Urine Opiates Screen Negative (NEGATIVE) Ur Oxycodone Screen Negative (NEGATIVE) Ur Propoxyphene Screen Negative (NEGATIVE) Ur Barbituates Screen Negative (NEGATIVE) Ur Tricyclics Screen Negative (NEGATIVE) Ur Phencyclidine Scrn Negative (NEGATIVE) Ur Amphetamine Screen Negative (NEGATIVE) Urine MDMA Screen Negative (NEGATIVE) U Benzodiazepines Scrn Negative (NEGATIVE) U Cocaine Metab Screen Negative (NEGATIVE) U Marijuana (THC) Screen Negative (NEGATIVE) Ethyl Alcohol < 0.03 (<0.03) % Meds: Medications Discontinued Medications Generic Name Dose Route Start Last Admin Trade Name Freq PRN Reason Stop Dose Admin Folic Acid 1 mg 04/27/17 09:30 04/27/17 09:37 Folic Acid PO 04/27/17 09:31 1 mg ONETIME ONE Administration Sodium Chloride 1,000 mls @ 999 mls/hr 04/27/17 08:11 04/27/17 08:29 Normal Saline IV 04/27/17 09:11 999 mls/hr .BOLUS ONE Administration Thiamine HCl 100 mg/ Sodium 101 mls @ 202 mls/hr 04/27/17 08:12 04/27/17 08: 33 Chloride IV 04/27/17 08:13 202 mls/hr ONETIME ONE Administration Sodium Chloride 1,000 mls @ 999 mls/hr 04/27/17 10:03 04/27/17 10:05 Normal Saline IV 04/27/17 11:03 999 mls/hr .BOLUS ONE Administration Lorazepam 1 mg 04/27/17 08:09 04/27/17 08:25 Ativan IVPUSH 04/27/17 08:10 1 mg ONETIME STA Administration Lorazepam 1 mg 04/27/17 09:11 04/27/17 09:32 Ativan IVPUSH 04/27/17 09:12 1 mg ONETIME ONE Administration Ondansetron HCl 8 mg 04/27/17 08:16 04/27/17 08:41 Zofran IVPUSH 04/27/17 08:17 8 mg ONETIME ONE Administration Departure - Departure Time of Disposition: 13:00 Disposition: DC/Tfer to Acute Hospital 02 Condition: Fair Clinical Impression: EtOH dependence Qualifiers: Substance use status: in withdrawal Complication of substance-induced condition : with unspecified complication Qualified Code(s): F10.239 - Alcohol dependence with withdrawal, unspecified - Discharge Information Referrals: PCP,None [Primary Care Provider] - Forms: ED Department Discharge - My Orders Last 24 Hours: My Active Orders 04/27/17 08:11 Seizure Precautions [OM.PC] Routine - Assessment/Plan Last 24 Hours: My Active Orders 04/27/17 08:11 Seizure Precautions [OM.PC] Routine
[2017-04-27] MEDS ORDERED: LORazepam 2 MG/ML MDV IVPUSH ONE (09:11)
[2017-04-27] MEDS ORDERED: Folic Acid 1 MG Tab PO ONE (09:30)
[2017-04-27 13:20] VITALS: BP 123/70
== END 2017-04-27 13:30 ==
LOC: FB.ED 07:53
DX: F10.239 Alcohol dependence with withdrawal, unspecified (principal); Y90.0 Blood alcohol level of less than 20 mg/100 ml; F17.210 Nicotine dependence, cigarettes, uncomplicated; Z91.018 Allergy to other foods
CPT/HCPCS: 36415; 80048; 80305; 82607; 85025; 85610; 96361; 96365; 96375; 96376; 99285; A9270; G0480; J2060; J2405; J3411; J7030; J7040

== ENCOUNTER 2019-05-10 22:01 | Emergency (ER) | payer SELFPAY ==
[2019-05-10] MEDS ORDERED: LORazepam 0.5 MG Tab PO ONE (22:02)
[2019-05-10] MEDS ORDERED: Ondansetron 4 MG Tab.DIS PO ONE ×3 (22:02→22:30)
[2019-05-10] MEDS ORDERED: Sodium Chloride 0.9% 10 ML Syringe FLUSH PRN (22:20)
[2019-05-10] MEDS ORDERED: Lactated Ringers 1,000 ML IV ONE (22:37)
[2019-05-10] MEDS ORDERED: Alum Hydroxide/Mag Hydroxide 15 ML, Lidocaine 2% 15 ML PO ONE ×2 (22:38)
--- NOTE | 2019-05-10 22:43 | EDM.PDOC ---
ED HPI GENERAL MEDICAL PROBLEM - General Chief Complaint: Abdominal Pain Stated Complaint: epigastric pain with nausea/vomiting Time Seen by Provider: 05/10/19 22:25 Source of Information: Reports: Patient, Family, Old Records, RN History Limitations: Reports: No Limitations - History of Present Illness INITIAL COMMENTS - FREE TEXT/NARRATIVE: 53 yo female with a pHx of ETOH abuse presents with epigastric pain and vomiting since 4 pm today. She thinks she is having gastritis. She reportedly, not her history, had been drinking heavily for the past few weeks until this past Monday when she for the most part was cut off from her supply. She not had fever or diarrhea. No hematemesis. No melena. Says she is a little dizzy with standing. Onset: Today Onset Date: 05/10/19 Onset Time: 16:00 Duration: Hour(s):, Constant Location: Reports: Abdomen (epigastrium) Quality: Reports: Burning Severity: Severe Improves with: Reports: None Worsens with: Reports: None Context: Reports: Other (See HPI) Associated Symptoms: Reports: Nausea/Vomiting. 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 (see below) (none) L upper abdomen Pain Score (Numeric/FACES): 10 R upper abdomen Pain Score (Numeric/FACES): 8 - Related Data Allergies Allergy/AdvReac Type Severity Reaction Status Date / Time cinnamon Allergy Rash Verified 05/10/19 22:10 Home Meds: Home Meds Multivitamin [Multivitamins] 1 tab PO DAILY 12/31/15 [History] Calcium Carbonate/Vitamin D3 [Calcium 600 + Vit D Tablet] 1 tab DAILY 05/10/19 [ History] Magnesium 250 mg PO DAILY 05/10/19 [History] Potassium Gluconate [Potassium] 600 mg PO DAILY 05/10/19 [History] Vitamin E 400 unit PO DAILY 05/10/19 [History] LORazepam 112 mg PO ASDIRECTED PRN #14 tablet 05/11/19 [Rx] Omeprazole 40 mg PO BEDTIME #30 cap.sr 05/11/19 [Rx] Ondansetron [Zofran ODT] 4 mg PO Q6H PRN #7 tab.dis 05/11/19 [Rx] Past Medical History HEENT History: Reports: None Cardiovascular History: Reports: None Respiratory History: Reports: Bronchitis, Recurrent Gastrointestinal History: Reports: None Other Genitourinary History: KIDNEY STONES IN PAST 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 Has been in treatment twice the first time fairly extensive, the second briefly (see Dr. Barrett's H&P from 01/03). Was suppose to follow up with [facility] after last admission on outpt basis--haven't been able to get from patient if she followed up with that. Endocrine/Metabolic History: Reports: None Hematologic History: Reports: None Immunologic History: Reports: None Oncologic (Cancer) History: Reports: None Dermatologic History: Reports: None - Infectious Disease History Infectious Disease History: Reports: Other (See Below) Other Infectious Disease History: cat scratch fever - Past Surgical History Musculoskeletal Surgical History: Reports: Ganglion Cyst, Other (See Below) Social & Family History - Family History Family Medical History: Noncontributory - Caffeine Use Caffeine Use: Reports: Coffee, Soda ED ROS GENERAL - Review of Systems Review Of Systems: See Below Constitutional: Reports: No Symptoms HEENT: Reports: No Symptoms Respiratory: Reports: No Symptoms Cardiovascular: Reports: Lightheadedness (mild with standing) Endocrine: Reports: No Symptoms GI/Abdominal: Reports: Abdominal Pain (epigastric), Nausea, Vomiting. Denies: Black Stool, Bloody Stool, Constipation, Diarrhea, Distension, Hematemesis, Hematochezia : Reports: Other (prolonged menses currently. ) Skin: Reports: No Symptoms Neurological: Reports: No Symptoms Psychiatric: Reports: Anxiety ED EXAM, GI/ABD - Physical Exam Exam: See Below Exam Limited By: No Limitations General Appearance: Alert, WD/WN, Mild Distress Eyes: Bilateral: Normal Appearance Ears: Normal External Exam, Normal Canal, Hearing Grossly Normal, Normal TMs Throat/Mouth: Normal Inspection, Normal Lips, Normal Oropharynx, Normal Voice, No Airway Compromise Head: Atraumatic, Normocephalic Neck: Normal Inspection Respiratory/Chest: No Respiratory Distress, Lungs Clear, Normal Breath Sounds, No Accessory Muscle Use Cardiovascular: Regular Rate, Rhythm, No Edema, Tachycardia GI/Abdominal Exam: Normal Bowel Sounds, Soft, No Distention, Tender (epigastrium ). No: Non-Tender, Distended, Guarding, Rigid, Rebound, Hernia Back Exam: Normal Inspection. No: CVA Tenderness (R), CVA Tenderness (L) Extremities: Normal Inspection, Normal Range of Motion, Non-Tender, No Pedal Edema Neurological: Alert, Oriented, CN II-XII Intact, Normal Cognition, No Motor/ Sensory Deficits Psychiatric: Normal Affect, Normal Mood Skin Exam: Warm, Dry, Intact, Normal Color, No Rash Course - Vital Signs Text/Narrative:: Had relief of her epigastric pain after the GI cocktail. Last Recorded V/S: Last Vital Signs Temp 36.6 C 05/10/19 22:01 Pulse 91 05/11/19 00:00 Resp 18 05/11/19 00:00 BP 146/113 H 05/11/19 00:00 Pulse Ox 100 05/11/19 00:00 - Orders/Labs/Meds Orders: Active Orders 24 hr Category Date Time Status Sodium Chloride 0.9% [Saline Flush] Med 05/10/19 22:20 Active 10 ml FLUSH ASDIRECTED PRN Saline Lock Insert [OM.PC] Routine Oth 05/10/19 22:20 Ordered Medication Orders Sodium Chloride (Saline Flush) 10 ml FLUSH ASDIRECTED PRN PRN Reason: Keep Vein Open Last Admin: 05/10/19 22:55 Dose: 10 ml Labs: Laboratory Tests 05/10/19 05/10/19 05/10/19 Range/Units 22:07 22:07 22:07 WBC 4.7 (4.5-12.0) X10-3/uL RBC 4.02 (3.23-5.20) x10(6)uL Hgb 14.1 (11.5-15.5) g/dL Hct 41.4 (30.0-51.3) % MCV 102.9 H (80-96) fL MCH 35.0 H (27.7-33.6) pg MCHC 34.0 (32.2-35.4) g/dL RDW 14.3 (11.5-15.5) % Plt Count 121 L (125-369) X10(3)uL Sodium 141 (135-145) mmol/L Potassium 3.8 (3.5-5.3) mmol/L Chloride 101 (100-110) mmol/L Carbon Dioxide 31 (21-32) mmol/L BUN 10 (7-18) mg/dL Creatinine 0.7 (0.55-1.02) mg/dL Est Cr Clr Drug Dosing 92.46 mL/min Estimated GFR (MDRD) > 60 (>60) BUN/Creatinine Ratio 14.3 (9-20) Glucose 121 H (80-116) mg/dL Calcium 8.9 (8.6-10.2) mg/dL C-Reactive Protein < 0.2 L (0.5-0.9) mg/dL Amylase 201 H (25-115) U/L Ethyl Alcohol (<0.03) % 05/10/19 Range/Units 22:10 WBC (4.5-12.0) X10-3/uL RBC (3.23-5.20) x10(6)uL Hgb (11.5-15.5) g/dL Hct (30.0-51.3) % MCV (80-96) fL MCH (27.7-33.6) pg MCHC (32.2-35.4) g/dL RDW (11.5-15.5) % Plt Count (125-369) X10(3)uL Sodium (135-145) mmol/L Potassium (3.5-5.3) mmol/L Chloride (100-110) mmol/L Carbon Dioxide (21-32) mmol/L BUN (7-18) mg/dL Creatinine (0.55-1.02) mg/dL Est Cr Clr Drug Dosing mL/min Estimated GFR (MDRD) (>60) BUN/Creatinine Ratio (9-20) Glucose (80-116) mg/dL Calcium (8.6-10.2) mg/dL C-Reactive Protein (0.5-0.9) mg/dL Amylase (25-115) U/L Ethyl Alcohol 0.21 H* (<0.03) % Meds: Medications Generic Name Dose Route Start Last Admin Trade Name Freq PRN Reason Stop Dose Admin Sodium Chloride 10 ml 05/10/19 22:20 05/10/19 22:55 Saline Flush FLUSH 10 ml ASDIRECTED PRN Administration Keep Vein Open Discontinued Medications Generic Name Dose Route Start Last Admin Trade Name Maritza PRN Reason Stop Dose Admin Al Hydroxide/Mg Hydroxide 30 ml 05/10/19 23:45 05/10/19 23:53 Mag-Al Susp PO 05/10/19 23:46 30 ml ONETIME ONE Administration Al Hydroxide/Mg Hydroxide 15 0 ml 05/10/19 22:38 05/10/19 22:44 ml/ Lidocaine HCl 15 ml PO 05/10/19 22:39 30 ml ONETIME ONE Administration Lactated Ringer's 1,000 mls @ 1,000 mls/hr 05/10/19 22:37 05/10/19 22:58 Ringers, Lactated IV 05/10/19 23:36 1,000 mls/hr BOLUS ONE Administration Ondansetron HCl 4 mg 05/10/19 22:30 05/10/19 22:44 Zofran Odt PO 05/10/19 22:31 4 mg ONETIME ONE Administration Oxycodone HCl 5 mg 05/10/19 23:06 05/10/19 23:12 Oxycodone PO 05/10/19 23:07 5 mg ONETIME ONE Administration Oxycodone HCl 5 mg 05/10/19 23:45 Oxycodone PO 05/10/19 23:46 ONETIME ONE Pantoprazole Sodium 40 mg 05/10/19 23:00 05/10/19 23:05 Protonix Iv IVPUSH 05/10/19 23:01 40 mg ONETIME ONE Administration - Re-Assessments/Exams Free Text/Narrative Re-Assessment/Exam: 05/11/19 00:09 Was offered "detox" and declined. Thinks she is feeling better now and does not need this. Departure - Departure Time of Disposition: 00:20 Disposition: Home, Self-Care 01 Condition: Fair Clinical Impression: Elevated amylase, Macrocytosis without anemia Alcoholic gastritis Qualifiers: Chronicity: acute Gastritis bleeding: without bleeding Qualified Code(s): K29.20 - Alcoholic gastritis without bleeding Alcohol intoxication Qualifiers: Complication of substance-induced condition: with delirium Qualified Code(s): F10.921 - Alcohol use, unspecified with intoxication delirium Alcohol dependence Qualifiers: Substance use status: in withdrawal Complication of substance-induced condition : with unspecified complication Qualified Code(s): F10.239 - Alcohol dependence with withdrawal, unspecified - Discharge Information *PRESCRIPTION DRUG MONITORING PROGRAM REVIEWED*: No *COPY OF PRESCRIPTION DRUG MONITORING REPORT IN PATIENT DARIAN: No Prescriptions: LORazepam 112 mg PO ASDIRECTED PRN #14 tablet PRN Reason: Withdrawal Symptoms Omeprazole 40 mg PO BEDTIME #30 cap.sr Ondansetron [Zofran ODT] 4 mg PO Q6H PRN #7 tab.dis PRN Reason: Nausea Instructions: Gastritis, Adult, [id number], Alcohol Withdrawal Syndrome, Easy -to-Read Referrals: PCP,None [Primary Care Provider] - Forms: ED Department Discharge Additional Instructions: Take omeprazole 40 mg daily for your gastritis. Take Zofran ODT 4 mg every 6 hrs as needed for nausea. Take lorazepam 1-2 mg every 4-8 hrs as needed for signs of alcohol withdrawal. Avoid alcohol or tobacco use. Follow up with you primary care provider within the week for recheck. Take Maalox(or generic) 30 ml after meals and at bedtime for your gastritis symptoms. If your stools become loose from the Maalox you may substitute Peptobismol(or the generic version)-be aware that this likely will turn your stools dark. Return as needed. Sepsis Event Note - Evaluation Sepsis Screening Result: No Definite Risk - Focused Exam Vital Signs: Vital Signs Temp Pulse Resp BP Pulse Ox 05/11/19 00:00 91 18 146/113 H 100 05/10/19 23:30 89 18 159/95 H 100 05/10/19 22:58 93 18 141/85 H 99 05/10/19 22:27 103 H 20 158/93 H 100 05/10/19 22:01 36.6 C 107 H 18 153/105 H 100 Date Exam was Performed: 05/11/19 Time Exam was Performed: 00:20 - My Orders Last 24 Hours: My Active Orders 05/10/19 22:20 Sodium Chloride 0.9% [Saline Flush] 10 ml FLUSH ASDIRECTED PRN Saline Lock Insert [OM.PC] Routine - Assessment/Plan Last 24 Hours: My Active Orders 05/10/19 22:20 Sodium Chloride 0.9% [Saline Flush] 10 ml FLUSH ASDIRECTED PRN Saline Lock Insert [OM.PC] Routine
[2019-05-10] MEDS ORDERED: Pantoprazole 40 MG Vial IVPUSH ONE (23:00)
[2019-05-10] MEDS ORDERED: oxyCODONE 5 MG Tab PO ONE ×2 (23:06→23:45)
[2019-05-10] MEDS ORDERED: Aluminum Hydroxide/Magnesium Hydroxide Susp 30 ML Cup PO ONE (23:45)
[2019-05-11 02:11] VITALS: BP 155/85; PULSE 81
== END 2019-05-11 00:35 | disposition home or self-care (01) ==
LOC: FB.ED 22:01
DX: K29.20 Alcoholic gastritis without bleeding (principal); F10.221 Alcohol dependence with intoxication delirium; F10.239 Alcohol dependence with withdrawal, unspecified; D75.89 Other specified diseases of blood and blood-forming organs; R74.8 Abnormal levels of other serum enzymes; F41.9 Anxiety disorder, unspecified; Z91.018 Allergy to other foods; Z79.899 Other long term (current) drug therapy
CPT/HCPCS: 36415; 80048; 82150; 85027; 86140; 96361; 96374; 99284; 99284-25; A9270-GY; C9113; G0480; J7120